=== PATIENT | male | born 1970 | race Caucasian/White ===

== ENCOUNTER 2020-11-11 07:24 | Outpatient (CLI) | payer BC, SELFPAY ==
[2020-11-11 07:37] LABS: Add Urine Microscopic? NO; Appearance Urine Clear (Clear); Bilirubin Urine Negative (Negative); Blood Urine Negative (Negative); Color Urine Yellow (Yellow); Glucose Urine UA Negative (Negative); Ketones Urine Negative (Negative); Leukocyte Esterase Ur Negative (Negative); Nitrate Urine Negative (Negative); Protein Urine Negative (Negative); Specific Grav Ur 1.025 (1.010-1.020); Urobilinogen Urine 0.2 mg/dL (0.2-1.0)
[2020-11-11 08:32] LABS: Alanine Aminotransferase 21 U/L (16-63); Albumin Level 3.7 g/dL (3.4-5.0); Alkaline Phosphatase 66 U/L (46-116); Anion Gap 7 mmol/L (8-16); Aspartate Amino Transferase 12 U/L (15-37); Bilirubin,Total 0.4 mg/dL (0.00-1.00); Blood Urea Nitrogen 18 mg/dL (7-18); Calcium 8.9 mg/dL (8.5-10.1); Carbon Dioxide 31 mmol/L (21-32); Chloride 104 mmol/L (98-108); Estimated Glomerular Filt Rate > 60; Ferritin 379 ng/mL (26-388); Glucose 96 mg/dL (70-99); Osmolality Calculated 295 mOsm/kg (285-295); Potassium 4.1 mmol/L (3.5-5.1); Sodium 142 mmol/L (136-145); Total Protein 6.5 g/dL (6.4-8.2)
== END 2020-11-11 07:25 | disposition home or self-care (01) ==
LOC: CHSLAB 07:28
PROVIDERS: PCP Internal Medicine; Visit Provider Internal Medicine
DX: Z00.00 Encounter for general adult medical examination without abnormal findings (principal); Z20.822 Contact with and (suspected) exposure to COVID-19; Z12.5 Encounter for screening for malignant neoplasm of prostate
CPT/HCPCS: 36415; 80053; 81003; 82728; 84153; 86769; G0103

== ENCOUNTER 2021-01-12 09:13 | Outpatient (CLI) | payer BC, SELFPAY ==
--- NOTE | ~2021-01-12 | XR_ITS ---
EXAMINATION: XR knee LT 3V DATE: 01/12/2021 09:49 INDICATION: Left knee pain TECHNIQUE: Three views of the left knee were obtained. COMPARISON: None. FINDINGS: Alignment is normal. No fracture or osteochondral lesion. There is mild tricompartmental os teoarthritis characterized by tiny marginal osteophytes. No joint effusion/synovitis. Soft tissues a re unremarkable. IMPRESSION: 1. No acute osseous abnormality. Reviewed, dictated and finalized at location A.
--- NOTE | ~2021-01-12 | XR_ITS ---
EXAMINATION: XR lumbar spine 2-3V DATE: 01/12/2021 09:48 INDICATION: Low back pain TECHNIQUE: Anteroposterior and lateral views of the lumbar spine, and cone-down lateral view of the l umbosacral junction were obtained. COMPARISON: None. FINDINGS: There is no fracture, dislocation, or subluxation. The vertebral body heights are normal. T here is moderate loss of intervertebral disc space height at L5-S1. Mild loss of disc space height at L3-4 and L4-5. Small degenerative osteophytes project from the anterior endplates of multiple verteb ral bodies. IMPRESSION: 1. Mild to moderate lumbar spondylosis without acute findings. Reviewed, dictated and finalized at location A.
--- NOTE | ~2021-01-12 | XR_ITS ---
XR knee RT 3V 01/12/2021 09:49 INDICATION: Chronic knee pain PROCEDURE: 3 views right knee COMPARISON: No prior studies for comparison. FINDINGS: Fracture, dislocation or subluxation is not identified. No significant joint effusion. The soft tissues appear within normal limits. No foreign bodies are identified. IMPRESSION: 1: NO ACUTE BONE OR JOINT ABNORMALITY IDENTIFIED. Reviewed, dictated and finalized at location A.
--- NOTE | ~2021-01-12 | XR_ITS ---
EXAMINATION: XR hip BI wo pelvis INDICATION: Bilateral hip pain TECHNIQUE: Two views of each hip are obtained. COMPARISON: None available FINDINGS: Bone alignment is normal. There is no fracture. There is mild osteoarthritis of the hips. P hleboliths are noted in the pelvis. IMPRESSION: 1. Mild osteoarthritis of the hips. Reviewed, dictated and finalized at location A.
== END 2021-01-12 09:14 | disposition home or self-care (01) ==
LOC: CHSIMG 09:15
PROVIDERS: PCP Internal Medicine; Visit Provider Internal Medicine
DX: M54.9 Dorsalgia, unspecified (principal); M25.552 Pain in left hip; M25.551 Pain in right hip; M25.562 Pain in left knee; M25.561 Pain in right knee
CPT/HCPCS: 72100; 73521; 73562

== ENCOUNTER 2022-02-07 16:03 | Outpatient (CLI) | payer BC, SELFPAY ==
--- NOTE | ~2022-02-07 | XR_ITS ---
EXAM: XR sinus min 3V DATE: 02/07/2022 16:25 HISTORY: Chronic cough. with SOB . COMPARISON: None available. FINDINGS: The aerated spaces are clear. Orbits are intact and symmetric. Normal mineralization. No f racture or dislocation. No abnormal intracranial calcification. IMPRESSION: Normal sinus radiograph findings. Reviewed, dictated and finalized at location K.
--- NOTE | ~2022-02-07 | XR_ITS ---
EXAMINATION: XR chest 2V Exam Date/Time: 02/07/2022 16:18 CDT HISTORY: Chronic cough. with SOB Comparison: 02/24/2015. RESULT: Lines, tubes, and devices: None. Lungs and pleura: Clear. Cardiomediastinal silhouette: Stable. Other: No acute osseous or upper abdominal finding. IMPRESSION: No acute cardiopulmonary process. Reviewed, dictated and finalized at location K.
== END 2022-02-07 16:04 | disposition home or self-care (01) ==
LOC: CHSIMG 16:06
PROVIDERS: PCP Internal Medicine; Visit Provider Internal Medicine
DX: R05.3 Chronic cough (principal)
CPT/HCPCS: 70220; 71046

== ENCOUNTER 2022-11-08 07:43 | Outpatient (CLI) | payer BC, SELFPAY ==
--- NOTE | ~2022-11-08 | XR_ITS ---
EXAMINATION: XR barium swallow DATE: 11/08/2022 11:43 CDT INDICATION: Chronic cough. Reflux. Asthma. TECHNIQUE: Thick barium contrast with gas effervescent crystals were administered orally. Fluoroscop ic images of the esophagus were obtained in various projections. The hypopharynx was also examined. T hereafter, overhead images of the thoracic esophagrus were performed. Fluroscopy time fluoroscopy jordy e is 0.8 minutes.Dap 12.8. 30 fluoroscopic images. FINDINGS: Normal esophageal peristalsis. There is mild irregularity to the distal esophageal mucosa, suspicious for esophagitis. There is normal esophageal peristalsis. There is a small hiatal hernia. Gastroesophageal reflux is seen during the course of this study. IMPRESSION: 1. Small sliding hiatal hernia with gastroesophageal reflux.Subtle irregularity distal esophageal mu cosa, suspicious for esophagitis. Reviewed, dictated and finalized at location L. IMPRESSION: 1. Small sliding hiatal hernia with gastroesophageal reflux.Subtle irregularit y distal esophageal mucosa, suspicious for esophagitis.
== END 2022-11-08 07:44 | disposition home or self-care (01) ==
LOC: CHSIMG 07:46
PROVIDERS: PCP Internal Medicine; Visit Provider Internal Medicine
DX: R05.9 Cough, unspecified (principal); K44.9 Diaphragmatic hernia without obstruction or gangrene; K21.9 Gastro-esophageal reflux disease without esophagitis
CPT/HCPCS: 74220

== ENCOUNTER 2022-11-30 10:38 | Outpatient (CLI) | payer BC, SELFPAY | END 2022-11-30 10:39 | disposition home or self-care (01) | LOC: CHSCARD 10:41 | PROVIDERS: PCP Internal Medicine; Visit Provider Internal Medicine | DX: R05.9 Cough, unspecified (principal); J98.8 Other specified respiratory disorders | CPT/HCPCS: 94060; 94726; 94729 ==

== ENCOUNTER 2022-12-27 03:20 | Day surgery (SDC) | payer BC, SELFPAY ==
[2022-12-20 10:21] VITALS: BMI 27.4
[2022-12-27 06:23] VITALS: BP 128/90; PULSE 56; RESP 18; TEMP 36.2; O2SAT 99
[2022-12-27] MEDS: LACTATED RINGERS 1,000 ML 150 ML IV CONT (06:39)
--- NOTE | 2022-12-27 07:12 | P.HP_ITS ---
History of Present Illness History of Present Illness Consent: Risks, benefits, and alternatives have been discussed and questions answered. Patient agrees to proceed with procedure. Chief complaint: acid reflux Narrative: Shi Grajeda is a 52 year old male Presents for EGD. Patient has complaints of heartburn for many many years. Typically gets relief with Beatriz- Landenberg. Patient previously prescribed pantoprazole but he is discontinue this. Patient does notice rather frequent ongoing heartburn. Patient had a chronic cough and there was some concern whether this could be related to his acid reflux a barium swallow was performed revealing a hiatal hernia and a question of mild distal esophagitis. Patient reports that sometimes food will catch in the mid substernal portion of the chest when swallowing. Patient presents today for EGD to evaluate more thoroughly. Family history is noncontributory. Review of Systems Review of Systems: review of systems noncontributory. [facility] Social History Social History Smoking status: Never smoker Substance use type: does not use Living arrangements: with family Spiritual care concerns: No Meds Home Medications and Allergies Home Medications Medication Instructions Recorded Confirmed Type No Home Medications 12/20/22 12/20/22 History Allergies Allergy/AdvReac Type Severity Reaction Status Date / Time No Known Allergies Allergy Verified 12/27/22 06:22 Vital Signs Vital Signs - 24 hr 12/27/22 06:23 Temperature 97.1 F L Pulse Rate 56 L Respiratory Rate 18 Blood Pressure 128/90 Pulse Oximetry 99 Oxygen Delivery Room Air Exam Narrative: Physical exam reveals patient to be alert. Vital signs stable. HEENT exam is unremarkable. Patient is anicteric. Lungs are clear to auscultation and percussion. Heart is without murmur or extra sounds. Abdomen bowel sounds are present soft nontender with no organomegaly. Assessment and Plan Assessment and plan (1) GERD (gastroesophageal reflux disease): Code(s): K21.9 - Gastro-esophageal reflux disease without esophagitis Status: Acute Assessment and Plan: Patient has a longstanding history of heartburn consistent with acid reflux. I am somewhat dissatisfied with his treatment with only Beatriz-Landenberg. He did not tolerate pantoprazole for unclear reasons. Plan to try Prilosec. EGD is requested because apparent esophagitis seen on barium swallow. Patient also has complaints of associated dysphagia that will be evaluated. Anti-reflux measures encouraged including elevating head of bed at night no late snacks and bland foods. (2) Dysphagia: Code(s): R13.10 - Dysphagia, unspecified Status: Acute Assessment and Plan: Dysphagia associated with a history of GE reflux suggest either spasm or possible narrowing esophagus. This will be evaluated by EGD.
--- NOTE | 2022-12-27 07:18 | P.PNAN_ITS ---
Anes - Initial Pre Proc Eval Procedure: Operation Date: 12/27/22 07:30 Proposed Procedures p Esophagogastroduodenoscopy - Alcon Carrillo MD Date/Time: 12/27/22 07:18 Surgeon: Alcon Carrillo MD Pre Op Diagnosis: acid reflux Patient Data Age: 52 Gender: M Height: 1.73 m Weight: 85.6 kg Last Vital Signs Temp 97.1 F L 12/27/22 06:23 Pulse 56 L 12/27/22 06:23 Resp 18 12/27/22 06:23 BP 128/90 12/27/22 06:23 Pulse Ox 99 12/27/22 06:23 O2 Del Method Room Air 12/27/22 06:23 Allergies Allergy/AdvReac Type Severity Reaction Status Date / Time No Known Allergies Allergy Verified 12/27/22 06:22 Home Medications Medication Instructions Recorded Confirmed Type No Home Medications 12/20/22 12/20/22 History Patient hx anesthesia problems: none Family hx anesthesia problems: none Results Review: All pre-operative results and documents have been reviewed as part of the pre- operative evaluation. [facility] Social History Social History Smoking status: Never smoker Substance use type: does not use Living arrangements: with family Spiritual care concerns: No Anes - Eval Final PreProcedure Day of Procedure 12/27/22 07:18 Patient weight: normal Heart: regular rate and rhythm Lungs: clear to auscultation Airway: Mallampati scale class II Neurological: alert and oriented Last oral intake: >/= 8 hours ASA classification: II Emergent: no Anesthetic plan: proceed Anesthesia type and monitoring: general GIVS and standard monitoring Results Review: All pre-operative results and documents have been reviewed as part of the pre- operative evaluation. Informed Consent: The patient's anesthetic plan and its attendant risks and benefits were discussed with the patient/family/POA. Questions were solicited and answers provided to the satisfaction of the patient/family/POA.
[2022-12-27 07:40] VITALS: BP 118/86; PULSE 67; RESP 14; O2SAT 96
[2022-12-27 07:50] VITALS: BP 113/80; PULSE 66; RESP 18; O2SAT 97
[2022-12-27 08:00] VITALS: BP 126/85; PULSE 56; RESP 16; O2SAT 99
== END 2022-12-27 08:10 | disposition home or self-care (01) ==
PROVIDERS: PCP Internal Medicine; Visit Provider Internal Medicine Gastroenterology
PROC: 0DJ08ZZ Inspection of Upper Intestinal Tract, Via Natural or Artificial Opening Endoscopic (ICD-10-PCS; CPT 43235; principal; 2022-12-27 07:30)
DX: K21.00 Gastro-esophageal reflux disease with esophagitis, without bleeding (principal); K22.2 Esophageal obstruction
CPT/HCPCS: 43450; 43235; J2704; J7120

== ENCOUNTER 2023-02-25 01:50 | Day surgery (SDC) | payer BC, SELFPAY ==
[2023-02-11 13:53] VITALS: BMI 28.1
[2023-02-25 06:48] VITALS: BP 116/79; PULSE 57; RESP 16; TEMP 36; O2SAT 99; BMI 28.8
[2023-02-25] MEDS: LACTATED RINGERS 1,000 ML 150 ML IV CONT (06:55)
--- NOTE | 2023-02-25 07:15 | WPDANESEPPF ---
Anes - Initial Pre Proc Eval Procedure: Operation Date: 02/25/23 08:00 Proposed Procedures p Esophagogastroduodenoscopy - Alcon Carrillo MD Date/Time: 02/25/23 07:15 Surgeon: Alcon Carrillo MD Pre Op Diagnosis: Esophageal Stricture Patient Data Age: 52 Gender: M Height: 1.73 m Weight: 86.2 kg Last Vital Signs Temp 36.0 C L 02/25/23 06:48 Pulse 57 L 02/25/23 06:48 Resp 16 02/25/23 06:48 BP 116/79 02/25/23 06:48 Pulse Ox 99 02/25/23 06:48 O2 Del Method Room Air 02/25/23 06:48 Allergies Allergy/AdvReac Type Severity Reaction Status Date / Time No Known Allergies Allergy Verified 02/25/23 06:47 Home Medications Medication Instructions Recorded Confirmed Type omeprazole 40 mg capsule,delayed 40 mg PO .Daily #90 caps 12/27/22 02/25/23 Rx release Patient hx anesthesia problems: none Family hx anesthesia problems: none Results Review: All pre-operative results and documents have been reviewed as part of the pre-operative evaluation. [facility] Past Medical History Medical History (Updated 02/25/23 @ 07:23 by Alcon Carrillo MD) DVT (deep venous thrombosis) GERD (gastroesophageal reflux disease) Social History Social History (Updated 02/25/23 @ 07:23 by Manjeet Chan DO) Smoking status: Never smoker Alcohol intake: current Alcohol use details: 2 drinks/day Substance use: current Substance use type: does not use Living arrangements: with family Spiritual care concerns: No Anes - Eval Final PreProcedure Day of Procedure 02/25/23 07:15 Patient weight: overweight Heart: regular rate and rhythm Lungs: clear to auscultation Airway: Mallampati scale class II Neurological: alert and oriented Last oral intake: >/= 8 hours ASA classification: III Emergent: no Anesthetic plan: proceed Anesthesia type and monitoring: general GIVS and standard monitoring Results Review: All pre-operative results and documents have been reviewed as part of the pre-operative evaluation. Informed Consent: The patient's anesthetic plan and its attendant risks and benefits were discussed with the patient/family/POA. Questions were solicited and answers provided to the satisfaction of the patient/family/POA.
--- NOTE | 2023-02-25 07:21 | PM.HPGS ---
History of Present Illness History of Present Illness Consent: Risks, benefits, and alternatives have been discussed and questions answered. Patient agrees to proceed with procedure. Chief complaint: Esophageal Stricture Narrative: Shi Grajeda is a 52 year old male Presents for follow-up EGD. Patient had rather severe erosive esophagitis with esophageal stricturing in December of 2022. Currently maintained on omeprazole 40mg p.o. daily. He states he currently is swallowing well without difficulty. Denies heartburn. EGD has been requested to document healing of severe esophageal erosions and ulcerations. Further recommendations may be given after endoscopy. Review of Systems Review of Systems: Review of systems noncontributory. [facility] Past Medical History Medical History (Updated 02/25/23 @ 07:23 by Alcon Carrillo MD) DVT (deep venous thrombosis) GERD (gastroesophageal reflux disease) Social History Social History Smoking status: Never smoker Alcohol intake: current Alcohol use details: 2 drinks/day Substance use: current Substance use type: does not use Living arrangements: with family Spiritual care concerns: No Meds Home Medications and Allergies Home Medications Medication Instructions Recorded Confirmed Type omeprazole 40 mg capsule,delayed 40 mg PO .Daily #90 caps 12/27/22 02/25/23 Rx release Allergies Allergy/AdvReac Type Severity Reaction Status Date / Time No Known Allergies Allergy Verified 02/25/23 06:47 Vital Signs Vital Signs - 24 hr 02/25/23 06:48 Temperature 96.8 F L Pulse Rate 57 L Respiratory Rate 16 Blood Pressure 116/79 Pulse Oximetry 99 Oxygen Delivery Room Air Exam Narrative: Physical exam reveals patient to be alert. Vital signs stable. HEENT exam is unremarkable. Patient is anicteric. Lungs are clear to auscultation and percussion. Heart is without murmur or extra sounds. abdomen bowel sounds are present soft nontender with no hepatosplenomegaly. Digital external rectal exam is normal. Assessment and Plan Assessment and plan (1) GERD (gastroesophageal reflux disease): Code(s): K21.9 - Gastro-esophageal reflux disease without esophagitis Status: Acute Assessment and Plan: Patient found to have severe esophageal ulcerations and stricturing in December of 2022. Patient now presents back to follow-up after being treated with omeprazole 40mg p.o. daily. Currently has no ongoing dysphagia. Denies heartburn. Further recommendations may be given after endoscopy. (2) Esophageal stricture: Code(s): K22.2 - Esophageal obstruction Status: Acute
[2023-02-25 08:09] VITALS: BP 108/75; BP 109/60; PULSE 62; PULSE 66; RESP 19; O2SAT 95; O2SAT 98
== END 2023-02-25 08:36 | disposition home or self-care (01) ==
PROVIDERS: PCP Internal Medicine; Visit Provider Internal Medicine Gastroenterology
PROC: 0DJ08ZZ Inspection of Upper Intestinal Tract, Via Natural or Artificial Opening Endoscopic (ICD-10-PCS; CPT 43235; principal; 2023-02-25 08:00)
DX: Q39.4 Esophageal web (principal); K21.9 Gastro-esophageal reflux disease without esophagitis
CPT/HCPCS: 43450; 43235; J2704; J7120

== ENCOUNTER 2023-10-22 04:36 | Emergency (ER) | payer BC, SELFPAY ==
--- NOTE | ~2023-10-22 | CT_ITS ---
CT of the Abdomen and Pelvis: Indication: Abdominal pain, hematuria Technique: 2.5 mm axial scans were obtained through the abdomen and pelvis following intravenous adm inistration of 100 cc of Omnipaque 350. Dose reduction technique was used on this scan by utilizing a utomated exposure control and iterative reconstruction technique. The dose-length product (DLP) was 5 28.99 mGy-cm. Findings: Scans through the lung bases are unremarkable. The liver, spleen, pancreas, gallbladder, adrenals and right kidney are within normal limits. There i s a 1.2 x 0.8 cm ovoid stone at the very proximal left ureter, with mild left hydronephrosis (axial i mage 79). No evidence of aortic aneurysm. No lymphadenopathy. No bowel obstruction or bowel wall thickening. There is no evidence to suggest acute appendicitis. Images through the pelvis were performed. Urinary bladder unremarkable. No pelvic mass seen. No ascit es. Impression: 1.2 x 0.8 cm stone at the very proximal left ureter with mild left hydronephrosis. Reviewed, dictated and finalized at location . Impression: 1.2 x 0.8 cm stone at the very proximal left ureter with mild left hydronephros is.
[2023-10-22 04:36] VITALS: BP 159/107; PULSE 73; RESP 20; TEMP 36.2; O2SAT 98
--- NOTE | 2023-10-22 04:44 | PC.NURSE ---
THIS RN ATTEMPTED IV ACCESS X 2 WITHOUT SUCCESS. KALEN CEDILLO AT BEDSIDE FOR IV START. SPOUSE AT BEDSIDE. PATIENT MOVING ABOUT ON STRETCHER, MOANING IN DISCOMFORT. PATIENT REPORTS HE NOTICED BLOOD IN HIS URINE YESTERDAY, DENIES PMH OF KIDNEY STONES, REPORTS LEFT SIDED FLANK PAIN ONSET LAST WEEK, WHICH HAS NOW MOVED DOWN INTO HIS LEFT LOWER PELVIC AREA.
--- NOTE | 2023-10-22 04:50 | ED.ABDPAIN ---
HPI - Abdominal Pain General Chief Complaint: Abdominal Pain Stated Complaint: abdominal pain Source: patient Mode of arrival: ambulatory Limitations: no limitations History of Present Illness HPI narrative: intermittent left flank pain for the last 7 days, got worse overnight, radiating to left lower quadrant, associated with nausea and restlessness. No history of kidney stone. Patient denies any fever or chills, complaining of pinkish color urination lately Related Data Home Medications Medication Instructions Recorded Confirmed omeprazole 40 mg capsule,delayed 40 mg PO DAILY 10/22/23 10/22/23 release Allergies Allergy/AdvReac Type Severity Reaction Status Date / Time No Known Allergies Allergy Verified 10/22/23 04:38 Review of Systems Review of Systems: All systems reviewed & are unremarkable except as noted in HPI and below PMFSH Past Medical History Medical History DVT (deep venous thrombosis) GERD (gastroesophageal reflux disease) Social History Social History Smoking status: Never smoker Alcohol intake: current Alcohol use details: 2 drinks/day Substance use: current Substance use type: does not use Living arrangements: with family Spiritual care concerns: No Exam Narrative: GENERAL APPEARANCE: WELL-DEVELOPED, WELL-NOURISHED, IN PAIN SKIN: NORMAL COLOR NECK: SUPPLE, NONTENDER CHEST AND RESPIRATORY: AIRWAY PATENT, NO RESPIRATORY DISTRESS, NO ACCESSORY MUSCLE USE HEART: REGULAR RATE/RHYTHM ABDOMEN: LEFT FLANK, LEFT LOWER QUADRANT NO ORGANOMEGALY, QUIET BOWEL SOUNDS VASCULAR: NORMAL PERIPHERAL PULSES, NORMAL CAPILLARY REFILL. MUSCULOSKELETAL: NORMAL RANGE OF MOTION, NONTENDER BACK NEUROLOGIC: ALERT AND ORIENTED ?3, NON DESTRUCTIVE EVALUATION MANAGER IS NORMAL TESTED, NO GROSS MOTOR DEFICIT Course Vital Signs Vital signs: Vital Signs Temperature 36.2 C L 10/22/23 04:36 Pulse Rate 73 10/22/23 04:36 Respiratory Rate 20 10/22/23 04:36 Blood Pressure 159/107 H 10/22/23 04:36 Pulse Oximetry 98 10/22/23 04:36 Oxygen Delivery Room Air 10/22/23 04:36 Temperature 36.2 C L 10/22/23 04:36 Pulse Rate 80 10/22/23 05:17 Respiratory Rate 20 10/22/23 05:17 Blood Pressure 121/99 H 10/22/23 05:17 Pulse Oximetry 100 10/22/23 05:17 Oxygen Delivery Room Air 10/22/23 05:17 MDM - Abdominal Pain MDM Narrative Medical decision making narrative: patient came with left flank pain vital signs on arrival showed blood pressure of 159/107, physical examination showed restless patient, in pain Blood workup showed WBC of 2.5, creatinine of 1.3, urinalysis showed hematuria. CT abdomen and pelvis showed 1.2 x 0.8 cm stone at the very proximal left ureter with mild left hydronephrosis In the ED patient received 1 L of normal saline, 0.5 mg of Dilaudid IV, 30 mg of Toradol IV, 4 mg of Zofran IV with significant improvement. Although The stone is large, and probably patient will need lithotripsy in the near future,patient feeling much better and would like to go home to follow-up with urologist as outpatient. Discharged on Flomax, Butternut, Zofran and Motrin Differential Diagnosis Differential diagnosis: Likely other ( kidney stone, urinary tract infection, constipation, splenic infarction) Lab Data 10/22/23 05:21 10/22/23 05:21 Labs: Lab Results 10/22/23 10/22/23 Range/Units 05:21 06:13 WBC 12.0 H (4.8-10.8) K/mm3 RBC 4.88 (4.70-6.10) M/mm3 Hgb 15.4 (14.0-18.0) g/dL Hct 45.7 (40.0-54.0) % MCV 93.6 (78.0-102.0) fL MCH 31.6 H (27.0-31.0)
[2023-10-22] MEDS: ONDANSETRON INJ 4 MG/2 ML VIAL IV PUSH (04:53)
[2023-10-22] MEDS: SODIUM CHLORIDE 0.9% IV 1,000 ML 999 ML IV CONT (04:53)
[2023-10-22] MEDS: HYDROmorphone HCL INJ (*CRX) 2 MG/ML VIAL 0.5 MG IV PUSH ×2 (04:54→05:29)
[2023-10-22] MEDS: TAMSULOSIN HCL 0.4 MG CAPSULE PO (04:59)
[2023-10-22 05:14] LABS: Basophils Absolute Auto 0.05 K/mm3 (0.00-0.10); Basophils Percent Auto 0.4 % (0.0-1.0); Eosinophils Absolute Auto 0.28 K/mm3 (0.02-0.50); Eosinophils Percent Auto 2.3 % (1.0-6.0); Hematocrit 45.7 % (40.0-54.0); Hemoglobin 15.4 g/dL (14.0-18.0); Immature Granulocyte Absolute 0.12 K/mm3 (0.00-0.00); Immature Platelet Fraction Pct 2.4 % (1.0-7.0); Lymphocytes Absolute Auto 3.58 K/mm3 (1.10-4.50); Lymphocytes Percent Auto 29.9 % (18.0-42.0); Mean Corpuscular HGB Conc 33.7 g/dL (32-36); Mean Corpuscular Hemoglobin 31.6 pg (27.0-31.0); Mean Corpuscular Volume 93.6 fL (78.0-102.0); Monocytes Absolute Auto 1.12 K/mm3 (0.10-0.90); Monocytes Percent Auto 9.3 % (2.0-11.0); Neutrophils Absolute Auto 6.83 K/mm3 (1.70-7.20); Neutrophils Percent Auto 57.1 % (50.0-70.0); Platelet Count Result 237 K/mm3 (150-420); Red Blood Count 4.88 M/mm3 (4.70-6.10); Red Cell Distribution Width 12.6 % (11.6-14.4)
[2023-10-22 05:17] VITALS: BP 121/99; PULSE 80; RESP 20; O2SAT 100
[2023-10-22 05:18] LABS: Alanine Aminotransferase 37 U/L (16-63); Albumin Level 3.3 g/dL (3.4-5.0); Alkaline Phosphatase 63 U/L (46-116); Anion Gap 11 mmol/L (4-12); Aspartate Amino Transferase 37 U/L (15-37); Bilirubin,Total 0.5 mg/dL (0.00-1.00); Blood Urea Nitrogen 18 mg/dL (7-18); Calcium 8.4 mg/dL (8.5-10.1); Carbon Dioxide 28 mmol/L (21-32); Chloride 101 mmol/L (98-108); Estimated Glomerular Filt Rate 55; Glucose 92 mg/dL (70-99); Lipase 34 U/L (16-77); Osmolality Calculated 291 mOsm/kg (285-295); Potassium 4.4 mmol/L (3.5-5.1); Sodium 140 mmol/L (136-145); Total Protein 7.1 g/dL (6.4-8.2)
[2023-10-22] MEDS: KETOROLAC 30 MG/ML VIAL (*BKC) IV PUSH (05:28)
--- NOTE | 2023-10-22 05:43 | PC.NURSE ---
PATIENT RETURNED FROM IMAGING, AWAITING RESULTS AND PLAN. SPOUSE AT BEDSIDE. RN MONITORING. PATIENT SPOUSE TELLS ED STAFF PATIENT REPORTED FEELING IMMEDIATE RELIEF AFTER LAST DOSE OF IV MEDICATION, SEE MAR. CALL LIGHT WITHIN REACH.
[2023-10-22 06:16] LABS: Appearance Urine Sl Cloudy (Clear); Bilirubin Urine Negative (Negative); Blood Urine 3+ (Negative); Color Urine Yellow (Yellow); Glucose Urine UA Negative (Negative); Ketones Urine Negative (Negative); Leukocyte Esterase Ur Negative LEU/UL (Negative); Nitrate Urine Negative (Negative); Protein Urine 1+ (Negative); Urobilinogen Urine 0.2 mg/dL (0.2-1.0)
[2023-10-22 06:22] LABS: Add Urine Microscopic? YES; Bacteria Urine Rare /hpf; RBC Urine 51-75 /hpf (0-2); WBC Urine None seen /hpf (0-3)
--- NOTE | 2023-10-22 06:25 | PC.NURSE ---
DR LENNON AT BEDSIDE FOR PATIENT UPDATE.
[2023-10-22 06:59] VITALS: BP 129/94; PULSE 78; RESP 16; TEMP 36.5; O2SAT 94
== END 2023-10-22 07:00 | disposition home or self-care (01) ==
PROVIDERS: Emergency Provider Emergency Medicine; PCP Internal Medicine
DX: N20.0 Calculus of kidney (principal); Z86.718 Personal history of other venous thrombosis and embolism; K21.9 Gastro-esophageal reflux disease without esophagitis
CPT/HCPCS: 36415; 74177; 80053; 81001; 83690; 85025; 85055; 96361; 96374; 96375; 96376; 99284; A9270; J1170; J1885; J2405; J7030; Q9967

== ENCOUNTER 2023-10-23 11:47 | Observation (INO) | payer BC, SELFPAY ==
--- NOTE | ~2023-10-23 | XR_ITS ---
EXAMINATION: XR abdomen/kub 1V DATE: 10/23/2023 15:55 INDICATION: Kidney stone. TECHNIQUE: A supine view of the abdomen on 2 radiographs was obtained. COMPARISON: CT abdomen and pelvis 10/22/2023 FINDINGS: There are no dilated loops of bowel. There are phleboliths and prostate calcifications in t he pelvis. Stool obscures the kidneys. IMPRESSION: 1. No visible urolithiasis. Reviewed, dictated and finalized at location A. IMPRESSION: 1. No visible urolithiasis.
[2023-10-23 11:49] VITALS: BP 119/100; PULSE 98; RESP 16; TEMP 36.6; O2SAT 98
[2023-10-23] MEDS: SODIUM CHLORIDE 0.9% IV 1,000 ML 999 ML IV CONT (13:34)
[2023-10-23] MEDS: HYDROmorphone HCL INJ (*CRX) 1 MG/ML SYR IV PUSH ×3 (13:34→20:49)
--- NOTE | 2023-10-23 13:34 | ED.BACK ---
HPI - Back Pain/Injury General Chief Complaint: Back Pain/Injury Stated Complaint: kidney stones Time Seen by Provider: 10/23/23 13:08 History of Present Illness HPI Narrative: 53-year-old male who presents emergency room for evaluation with the pain. Patient was seen yesterday for same complaint, CT scan shows a 1.2 cm stone to the proximal left ureter with mild hydronephrosis. Patient was given fluids and pain medication during his ER stay. Patient stated that he achieved pain relief and wished to go home follow-up with urology as an outpatient. States today or the pain became unbearable. States the pain comes in waves lasts for 2-3 hours. Hydrocodone is not alleviating his pain. Related Data Home Medications Medication Instructions Recorded Confirmed omeprazole 40 mg capsule,delayed 40 mg PO DAILY 10/22/23 10/22/23 release Allergies Allergy/AdvReac Type Severity Reaction Status Date / Time No Known Allergies Allergy Verified 10/22/23 04:38 Review of Systems Review of Systems: My ROS unremarkable except for stated in HPI PMFSH Past Medical History Medical History DVT (deep venous thrombosis) GERD (gastroesophageal reflux disease) Social History Social History Smoking status: Never smoker Alcohol intake: current Alcohol use details: 2 drinks/day Substance use: current Substance use type: does not use Living arrangements: with family Spiritual care concerns: No Exam Narrative: GENERAL: Well-appearing, well-nourished, no physical limitations, and in no acute distress. HEAD: Normocephalic, atraumatic. EYES: Conjunctivae normal, PERRLA and EOMI.D CHEST: Clear to auscultation. No respiratory distress. No wheezes rales or rhonchi. HEART: Regular rate and rhythm. No murmur heard. Normal peripheral pulses. ABDOMEN: Soft, nontender, nondistended, normal active bowel sounds. BACK: No CVA tenderness; EXTREMITIES: Normal range of motion. No edema. No clubbing or cyanosis SKIN: Warm, dry, no rash. No noted wounds NEURO: No focal deficits. Alert and oriented x3. MAEW. CN's II-XI intact bilaterally, normal gait PSYCH: Cooperative. Normal mood and affect. Course Course Emergency Course: Consulted with Dr. Green. He is going to come down and evaluate the patient here in the emergency room. Due to patient's discomfort level, topical number he will be taking the patient to the OR for further management. Vital Signs Vital signs: Vital Signs Temperature 36.6 C 10/23/23 11:49 Pulse Rate 98 10/23/23 11:49 Respiratory Rate 16 10/23/23 11:49 Blood Pressure 119/100 H 10/23/23 11:49 Pulse Oximetry 98 10/23/23 11:49 Oxygen Delivery Room Air 10/23/23 11:49 Temperature 36.6 C 10/23/23 11:49 Pulse Rate 98 10/23/23 11:49 Respiratory Rate 16 10/23/23 11:49 Blood Pressure 119/100 H 10/23/23 11:49 Pulse Oximetry 98 10/23/23 11:49 Oxygen Delivery Room Air 10/23/23 11:49 MDM - Back Pain/Injury Lab Data 10/23/23 14:37 10/23/23 14:37 Labs: Lab Results 10/23/23 Range/Units 14:37 WBC 14.9 H (4.5-10.0) K/mm3 RBC 4.09 L (4.6-6.20) M/mm3 Hgb 13.3 L (14.0-18.0) g/dL Hct 38.8 L (42.0-52.0) % MCV 94.9 (80-100) fl MCH 32.5 (26-34) pg MCHC 34.3 (32-36) g/dl RDW 12.6 (11.5-14.5) % Plt Count 236 (150-375) k/mm3 MPV 9.4 (7.4-10.4) fl Immature Gran % (Auto) 0.7 H (0-0.5) % Neut % (Auto) 83.0 H (45.5-73.1) % Lymph % (Auto) 7.4 L (18.3-44.2) % [place] % (Auto) 8.6 H (2.6-8.5) % Eos % (Auto) 0.1 (0-4.4) % Baso % (Auto) 0.2 (0.2-1.2) % Lymph # (Auto) 1.11 (0.9-3.2) K/mm3 [place] # (Auto) 1.3 H (0.1-0.6) K/mm3 Eos # (Auto) 0.0 (0-0.3) K/mm3 Baso # (Auto) 0.0 (0.0-0.1) K/mm3 Abs Immat Gran (auto) 0.10 H (0.00-0.031) K/mm3 Absolute Neuts (auto) 12.4 H (1.
[2023-10-23] MEDS: ONDANSETRON INJ 4 MG/2 ML VIAL IV PUSH (13:35)
[2023-10-23 14:43] LABS: Basophils Percent Auto 0.2 % (0.2-1.2); Eosinophils Percent Auto 0.1 % (0-4.4); Hematocrit 38.8 % (42.0-52.0); Hemoglobin 13.3 g/dL (14.0-18.0); Immature Granulocyte Percent A 0.7 % (0-0.5); Lymphocytes Absolute Auto 1.11 K/mm3 (0.9-3.2); Lymphocytes Percent Auto 7.4 % (18.3-44.2); Mean Corpuscular HGB Conc 34.3 g/dl (32-36); Mean Corpuscular Hemoglobin 32.5 pg (26-34); Mean Corpuscular Volume 94.9 fl (80-100); Mean Platelet Volume 9.4 fl (7.4-10.4); Monocytes Absolute Auto 1.3 K/mm3 (0.1-0.6); Monocytes Percent Auto 8.6 % (2.6-8.5); Neutrophils Absolute Auto 12.4 K/mm3 (1.3-6.7); Platelet Count Result 236 k/mm3 (150-375); Red Blood Count 4.09 M/mm3 (4.6-6.20); Red Cell Distribution Width 12.6 % (11.5-14.5); White Blood Count 14.9 K/mm3 (4.5-10.0)
[2023-10-23 14:54] LABS: Alanine Aminotransferase 21 U/L (6-50); Albumin Level 3.9 g/dL (3.5-5.1); Alkaline Phosphatase 66 U/L (38-126); Anion Gap 7 mmol/L (4-12); Aspartate Amino Transferase 33 U/L (17-59); Bilirubin,Total 0.9 mg/dL (0.2-1.3); Blood Urea Nitrogen 13 mg/dL (9-20); Calcium 8.7 mg/dL (8.4-10.2); Carbon Dioxide 23 mmol/L (22-30); Chloride 108 mmol/L (98-107); Estimated CRCL calculation 88 ml/min; Estimated Glomerular Filt Rate > 60; Glucose 110 mg/dL (65-110); Potassium 3.8 mmol/L (3.4-5.0); Sodium 138 mmol/L (137-145)
[2023-10-23 15:06] LABS: Appearance Urine Clear (Clear); Bacteria Urine None Seen /hpf; Bilirubin Urine Negative (Negative); Blood Urine 2+ (Negative); Color Urine Yellow (Yellow); Glucose Urine UA Negative (Negative); Ketones Urine Negative (Negative); Leukocyte Esterase Ur 1+ LEU/UL (Negative); Need Manual Microscopic Reviewed; Nitrate Urine Negative (Negative); Non Pathogenic Casts 0-2; Protein Urine Negative (Negative); RBC Urine 0-2 /hpf (0-2); Specific Grav Ur 1.005 (1.001-1.035); Squamous Epithelial Cell Urine None Seen /hpf (Few); Urobilinogen Urine 0.2 mg/dL (<2.0); WBC Urine 0-5 /hpf (0-3); pH Urine 5.5 (5.0-9.0)
[2023-10-23 15:10] LABS: Add Urine Microscopic? YES
--- NOTE | 2023-10-23 15:58 | WPDURCON ---
Assessment and Plan Assessment and plan (1) Left ureteral stone: Code(s): N20.1 - Calculus of ureter <Milagros Amezquita MD - Last Filed: 10/23/23 16:56> Status: Acute <Milagros Amezquita MD - Last Filed: 10/23/23 16:56> Assessment and Plan: 1.2 x 0.8 cm stone at the proximal left ureter with mild left hydronephrosis. Stone is not visible on KUB. -- Plan admission to the hospital for pain control. -- Will proceed with cystoscopy, Left retrograde pyelogram, left ESWL and left ureteral stent placement tomorrow. Risks of the procedure including but limited to infection, bleeding, pain, injury to surrounding structures, inability to place stent, need for additional procedures, complications from anesthesia were all discussed. Patient understands and agrees to proceed. <Milagros Amezquita MD - Last Filed: 10/23/23 16:56> 1.2 x 0.8 cm stone at the proximal left ureter with mild left hydronephrosis. Stone is not visible on KUB. Will proceed with cystoscopy and left ureteral stent placement this evening given his persistent severe pain. Will need definitive stone treatment a later date. <Katie Villarreal PA-C - Last Filed: 10/23/23 16:29> Urology Consult Note HPI Date Seen: 10/23/23 <Milagros Amezquita MD - Last Filed: 10/23/23 16:56> 10/23/23 <Katie Villarreal PA-C - Last Filed: 10/23/23 16:29> Primary Care Provider: David Pro MD <Milagros Amezquita MD - Last Filed: 10/23/23 16:56> Consult Narrative Narrative: Shi Grajeda is a 53 year old male <Milagros Amezquita MD - Last Filed: 10/23/23 16:56> Shi Grajeda is a 53 year old male with history of gout who is being seen in consultation for evaluation of large proximal left ureteral stone. He has no history of kidney stones or other urologic issues. Reports about 3 days ago he developed left-sided pain, vomiting, and chills. He presented to the ER on 10/22/[address] scan of his abdomen/pelvis with contrast demonstrated a 1.2 x 0.8 cm stone at the proximal left ureter with mild left hydronephrosis. His pain improved and he was discharged with a course of tamsulosin, analgesics, antiemetics. He was instructed to strain his urine and a follow-up with urology as an outpatient. Unfortunately this afternoon his symptoms became more severe and he presented again to the ER with left flank pain. He reports colicky pain that comes and goes in waves. At the time of my evaluation, he is visibly uncomfortable, pacing around the room. His white blood cell count is 14.9. Creatinine is 1.0. UA with 2+ blood and 1+ leukocytes. He is afebrile and his vital signs are stable. KUB was completed this afternoon and stone is not visible. Suspect that he has a uric acid stone given his history of gout. Given his persistent significant pain, he has elected to proceed with cystoscopy and left ureteral stent placement later today. Discussed need for definitive stone treatment at a later date. He is agreeable to this plan. <Katie Villarreal PA-C - Last Filed: 10/23/23 16:29> Review of Systems Review of Systems: All systems reviewed & are unremarkable except as noted in HPI and below <Katie Villarreal PA-C - Last Filed: 10/23/23 16:29> [facility] Past Medical History Medical History: Medical History DVT (deep venous thrombosis) GERD (gastroesophageal reflux disease) <Milagros Amezquita MD - Last Filed: 10/23/23 16:56> Social History Social History: Social History Smoking status: Never smoker Alcohol intake: current Alcohol use details: 2 drinks/day Substance use: current Substance use type: does not use Living arrangements: with family Spiritual care concerns: No <Milagros Amezquita MD - Last Filed: 10/23/23 16:56> Meds Home Medications and Allergies Home medi
--- NOTE | 2023-10-23 18:26 | PM.IMHP ---
H&P: HPI History of Present Illness Date/Time: 10/23/23 18:26 Chief Complaint: Flank Pain Narrative: 53 y/o M presents here with left flank pain with PMH of DVT (RLE, 2019), gout, and GERD. Patient returns to the emergency department for re-evaluation of left flank pain. Patient presented yesterday, 10/21, with left lower quadrant pain and left flank pain that has been ongoing for 7 days. 1.2 cm stone to the proximal left ureter with mild hydronephrosis. Patient was discharged after his pain was controlled, prescribed hydrocodone, and to follow up with Urology outpatient. However return today due to severity of pain. Patient describes the pain as sharp, cramping, achy, nonradiating, intermittent and no aggravating or alleviating factors. Patient tried hydrocodone script while at home without relief. No prior history of kidney stones. No fever, chills, or body aches. E ndorses breif hematuria at the onset of symptoms, has not reoccured. No dysuira or urinary frequnecy. Initial VS at presentation: 97.9? F, HR 98, RR 16, 119/100, and 98% on RA. ED workup showed: WBC 14.9, very mild anemia, creatinine 1.0 and GFR >60, and UA showed 2+ blood and 1+ leuks. CT of the abdomen pelvis (10/22/23) showed a 1.2 x 0.8 cm stone at the very proximal left ureter. Review of Systems Review of Systems: All systems reviewed & are unremarkable except as noted in HPI and below PMFSH Past Medical History Medical History DVT (deep venous thrombosis) (2019) Esophageal stricture GERD (gastroesophageal reflux disease) Gout History of esophageal dilatation Surgical History Surgical History (Updated 10/23/23 @ 21:50 by Gail Dorman APRN) History of foot surgery Fracture, 2019 Social History Social History Smoking packs per day: 0.25 Smoking cigarettes per day: 5.0 Years smoked: 4 Smoking pack-years: 1.00 Smoking status: Former smoker Alcohol intake: current Drinks per week: 12 Alcohol use details: 2 drinks/day Substance use: never Substance use type: does not use Do You Feel Safe in your Home?: Yes Lack of Transportation: No Lack of Food: Never True Current Housing: I Have Housing Concerned About Future Housing: No Difficulty Paying Gas/Electric Bills: No Difficulty Paying for Meds: No Currently Unemployed: No Education: High School Diploma/GED Difficulty w/ Childcare or Family Care: No Living arrangements: with family Spiritual care concerns: No Meds Home Medications and Allergies Home Medications Medication Instructions Recorded Confirmed Type hydrocodone 5 mg-acetaminophen 325 1 tablet PO Q4H #20 tabs 10/22/23 10/23/23 Rx mg tablet omeprazole 40 mg capsule,delayed 40 mg PO DAILY 10/22/23 10/23/23 History release ondansetron HCl 4 mg tablet 4 mg PO Q4H 3 doses #10 tabs 10/22/23 10/23/23 Rx tamsulosin 0.4 mg capsule (Flomax) 0.4 mg PO DAILY #10 caps 10/22/23 10/23/23 Rx Allergies Allergy/AdvReac Type Severity Reaction Status Date / Time No Known Allergies Allergy Verified 10/22/23 04:38 Vital Signs Vital Signs - 24 hr 10/23/23 11:49 Temperature 97.9 F Pulse Rate 98 Respiratory Rate 16 Blood Pressure 119/100 H Pulse Oximetry 98 Oxygen Delivery Room Air Exam Const: General: comfortable and no acute distress Other: , male, nontoxic appearance HENMT: Face/Nose/Sinus: Normal nares present Mouth: Yes moist mucous membranes Eyes: General: appearance normal, both eyes and all related structures Sclera: sclerae normal Pupils: Equal, round and reactive pupils present EOM: EOMs intact bilaterally Resp: Effort & Inspection: normal respiratory effort Auscultation: clear to auscultation bilaterally Cardio: Rate: regular rate Rhythm: regular rhythm Other: S1-S2 present without murmur, rub, ectopy GI: Other: a
[2023-10-23 18:28] VITALS: BP 137/71; PULSE 71; RESP 16; TEMP 36.9; O2SAT 98
[2023-10-23 18:30] VITALS: BP 144/80; PULSE 77; RESP 18; TEMP 36.7; O2SAT 98
--- NOTE | 2023-10-23 18:44 | ADMGEN ---
This patient, Shi Grajeda, was admitted to [facility] Surg Room 325-01. Patient/family oriented to hospital policies and general routines including ID bracelet, bed and alarms, visiting hours, pain management, procedures, bathroom and other care routines, personal items, smoking policy, room service/diet, and visiting hours. Information on how to activate the Rapid Response Team has been discussed. Patient/Family are encouraged to report perceived risks to care and to ask questions if they do not understand what they are told or what they should do.
[2023-10-23] MEDS: LACTATED RINGERS 1,000 ML 75 ML IV CONT (19:54)
[2023-10-23 20:00] VITALS: BP 138/68; PULSE 100; RESP 16; TEMP 36.9; O2SAT 98
[2023-10-24] VITALS (12 sets, daily range): BP systolic 117–142; BP diastolic 65–90; PULSE 64–98; RESP 13–19; TEMP 36.2–36.9; O2SAT 93–99
[2023-10-24] MEDS: HYDROmorphone HCL INJ (*CRX) 1 MG/ML SYR IV PUSH (01:50)
--- NOTE | 2023-10-24 06:19 | P.HP_ITS ---
History of Present Illness History of Present Illness Consent: Risks, benefits, and alternatives have been discussed and questions answered. Patient agrees to proceed with procedure. Chief complaint: Nephrolithiasis Narrative: Shi Grajeda is a 53 year old male [facility] Past Medical History Medical History DVT (deep venous thrombosis) (2019) Esophageal stricture GERD (gastroesophageal reflux disease) Gout History of esophageal dilatation Surgical History Surgical History (Updated 10/23/23 @ 21:50 by Gail Dorman APRN) History of foot surgery Fracture, 2019 Social History Social History Smoking packs per day: 0.25 Smoking cigarettes per day: 5.0 Years smoked: 4 Smoking pack-years: 1.00 Smoking status: Former smoker Alcohol intake: current Drinks per week: 12 Alcohol use details: 2 drinks/day Substance use: never Substance use type: does not use Do You Feel Safe in your Home?: Yes Lack of Transportation: No Lack of Food: Never True Current Housing: I Have Housing Concerned About Future Housing: No Difficulty Paying Gas/Electric Bills: No Difficulty Paying for Meds: No Currently Unemployed: No Education: High School Diploma/GED Difficulty w/ Childcare or Family Care: No Living arrangements: with family Spiritual care concerns: No Meds Home Medications and Allergies Home Medications Medication Instructions Recorded Confirmed Type hydrocodone 5 mg-acetaminophen 325 1 tablet PO Q4H #20 tabs 10/22/23 10/23/23 Rx mg tablet omeprazole 40 mg capsule,delayed 40 mg PO DAILY 10/22/23 10/23/23 History release ondansetron HCl 4 mg tablet 4 mg PO Q4H 3 doses #10 tabs 10/22/23 10/23/23 Rx tamsulosin 0.4 mg capsule (Flomax) 0.4 mg PO DAILY #10 caps 10/22/23 10/23/23 Rx Allergies Allergy/AdvReac Type Severity Reaction Status Date / Time No Known Allergies Allergy Verified 10/22/23 04:38 Vital Signs Vital Signs - 24 hr 10/23/23 11:49 10/23/23 18:28 10/23/23 18:30 Temperature 97.9 F 98.5 F 98.0 F Pulse Rate 98 71 77 Respiratory Rate 16 16 18 Blood Pressure 119/100 H 137/71 144/80 H Pulse Oximetry 98 98 98 Oxygen Delivery Room Air 10/23/23 20:00 10/23/23 20:00 10/24/23 00:00 Temperature 98.4 F 97.8 F Pulse Rate 100 73 Respiratory Rate 16 14 Blood Pressure 138/68 138/83 Pulse Oximetry 98 95 Oxygen Delivery Room Air 10/24/23 04:00 Temperature 97.8 F Pulse Rate 73 Respiratory Rate 14 Blood Pressure 138/83 Pulse Oximetry 95 Oxygen Delivery
--- NOTE | 2023-10-24 06:47 | WPDHPUPDATE1 ---
History and Physical Update Update Date/Time: 10/24/23 06:47 History and Physical has been reviewed, including an updated exam of the patient. There are NO changes in the patient's condition. Risks, benefits, and alternatives have been discussed and questions answered. Patient agrees to proceed with procedure.
[2023-10-24 06:48] LABS: Basophils Percent Auto 0.1 % (0.2-1.2); Eosinophils Absolute Auto 0.1 K/mm3 (0-0.3); Eosinophils Percent Auto 1.3 % (0-4.4); Hematocrit 37.1 % (42.0-52.0); Hemoglobin 12.5 g/dL (14.0-18.0); Immature Granulocyte Absolute 0.06 K/mm3 (0.00-0.031); Immature Granulocyte Percent A 0.6 % (0-0.5); Lymphocytes Absolute Auto 1.96 K/mm3 (0.9-3.2); Lymphocytes Percent Auto 18.4 % (18.3-44.2); Mean Corpuscular HGB Conc 33.7 g/dl (32-36); Mean Corpuscular Hemoglobin 32.2 pg (26-34); Mean Corpuscular Volume 95.6 fl (80-100); Mean Platelet Volume 9.6 fl (7.4-10.4); Monocytes Absolute Auto 1.4 K/mm3 (0.1-0.6); Monocytes Percent Auto 13.1 % (2.6-8.5); Neutrophils Absolute Auto 7.1 K/mm3 (1.3-6.7); Neutrophils Percent Auto 66.5 % (45.5-73.1); Platelet Count Result 210 k/mm3 (150-375); Red Blood Count 3.88 M/mm3 (4.6-6.20); Red Cell Distribution Width 12.9 % (11.5-14.5); White Blood Count 10.7 K/mm3 (4.5-10.0)
[2023-10-24 07:05] LABS: Alanine Aminotransferase 17 U/L (6-50); Albumin Level 3.4 g/dL (3.5-5.1); Alkaline Phosphatase 56 U/L (38-126); Anion Gap 3 mmol/L (4-12); Aspartate Amino Transferase 18 U/L (17-59); Bilirubin,Total 0.8 mg/dL (0.2-1.3); Blood Urea Nitrogen 11 mg/dL (9-20); Calcium 8.3 mg/dL (8.4-10.2); Carbon Dioxide 26 mmol/L (22-30); Chloride 106 mmol/L (98-107); Estimated CRCL calculation 88 ml/min; Estimated Glomerular Filt Rate > 60; Glucose 102 mg/dL (65-110); Potassium 3.6 mmol/L (3.4-5.0); Sodium 135 mmol/L (137-145)
--- NOTE | 2023-10-24 09:47 | PM.IMPN ---
Progress Note: A&P Assessment and Plan (1) Left ureteral stone: Code(s): N20.1 - Calculus of ureter Status: Acute Assessment and Plan: - CT abd/pelvis (10/21): 1.2 x 0.8 cm stone at the very proximal left ureter with mild left hydronephrosis. - UA: 2+ blood, 1+ leuks, no epithelial cells, no bacteria - given up trending leukocytosis will obtain UC, hold on abx - previous micro reviewed: none - urology consulted, Alirio LIZAMA. provided the following recs: Admission for pain control Proceed with cystoscopy and left retrograde pyelogram, left ESWL and left ureteral stent placement on 10/23 around 3 pm Stone is not visible on KUB, will need definitive stone treatment at a later date - NPO at midnight 10/23 - trend labs - pain control - IV fluids: LR at 75 mL/hr x 1L - continue Flomax Plan Patient here with left flank pain, found to have a 1.2 x 0.8 cm stone of the proximal left ureter on CT yesterday, 10/21. Plan for cystoscopy tomorrow with Urology. UA does not appear infected, however has up trending leukocytosis, urine culture ordered. Continue pain control. Diet: NPO at midnight () GI Prophylaxis: Continue home omeprazole DVT Prophylaxis: SCDs Lines: Peripheral Code Status: full code Time Spent With Patient Time with patient: 15 - 25 minutes Subjective Date/time seen: 10/24/23 09:47 Interval history: 53 y/o M presents here with left flank pain with PMH of DVT (RLE, 2019), gout, and GERD. Patient returns to the emergency department for re-evaluation of left flank pain.? Patient presented yesterday, 10/21, with left lower quadrant pain and left flank pain that has been ongoing for 7 days. 1.2 cm stone to the proximal left ureter with mild hydronephrosis.? Patient was discharged after his pain was controlled, prescribed hydrocodone, and to follow up with Urology outpatient.? However return today due to severity of pain.? Patient describes the pain as sharp, cramping, achy, nonradiating, intermittent and no aggravating or alleviating factors.? Patient tried hydrocodone script while at home without relief. No prior history of kidney stones. No fever, chills, or body aches. E ndsahsa breif hematuria at the onset of symptoms, has not reoccurred. No dysuira or urinary frequnecy. Initial VS at presentation:? 97.9? F, HR 98, RR 16, 119/100, and 98% on RA. ED workup showed:? WBC 14.9, very mild anemia, creatinine 1.0 and GFR >60, and UA showed 2+ blood and 1+ leuks.? CT of the abdomen pelvis (10/22/23) showed a 1.2 x 0.8 cm stone at the very proximal left ureter. 10/23- cystoscopy is planned for today around 3 pm Review of Systems Review of Systems: All systems reviewed & are unremarkable except as noted in HPI and below Cardiovascular: Cardiovascular: Denies chest pain, Denies diaphoresis and Denies leg edema Gastrointestinal: Gastrointestinal: Denies abdominal pain Genitourinary: Genitourinary: Denies hematuria Neurologic: Reports system reviewed and no additional complaints, except as documented, Denies Abnormal speech present and Denies abnormal gait Psychiatric: Psychiatric: Denies anxiety and Denies behavioral changes Exam Narrative: mild left flank tenderness. bs fine. abdomen rounded, slightly tight but soft, and no tenderness. Const: General: comfortable and no acute distress Other: , male, nontoxic appearance HENMT: Face/Nose/Sinus: Normal nares present Mouth: Yes moist mucous membranes Eyes: General: appearance normal, both eyes and all related structures Sclera: sclerae normal Pupils: Equal, round and reactive pupils present EOM: EOMs intact bilaterally Resp: Effort & Inspection: normal respiratory effort Auscultation: clear to auscultation bilaterally Cardio: Rate: regular rate Rhythm: regular rhythm Other: S1-S2 present without murmur, rub, ectopy GI: Other: abdomen rounded, slightly tight but soft, and no tenderness. Normoactive bowel sounds i
[2023-10-24] MEDS: LACTATED RINGERS 1,000 ML 30 ML IV CONT ×3 (13:20→15:45)
--- NOTE | 2023-10-24 13:43 | WPDANESEPPF ---
Anes - Initial Pre Proc Eval Procedure: Operation Date: 10/24/23 16:30 Proposed Procedures p Left Extracorporeal Shock Wave Lithotripsy, Left Retrograde Pyelogram, Left Ureteral Stent Placement - Moy Chavira MD Date/Time: 10/24/23 13:43 Surgeon: Asif Carroll MD Pre Op Diagnosis: Nephrolithiasis Patient Data Age: 53 Gender: M Height: 1.75 m Weight: 100 kg Last Vital Signs Temp 36.2 C L 10/24/23 12:00 Pulse 83 10/24/23 12:00 Resp 16 10/24/23 12:00 BP 142/78 H 10/24/23 12:00 Pulse Ox 97 10/24/23 12:00 O2 Del Method Room Air 10/24/23 08:00 Allergies Allergy/AdvReac Type Severity Reaction Status Date / Time No Known Allergies Allergy Verified 10/22/23 04:38 Home Medications Medication Instructions Recorded Confirmed Type hydrocodone 5 mg-acetaminophen 325 1 tablet PO Q4H #20 tabs 10/22/23 10/23/23 Rx mg tablet omeprazole 40 mg capsule,delayed 40 mg PO DAILY 10/22/23 10/23/23 History release ondansetron HCl 4 mg tablet 4 mg PO Q4H 3 doses #10 tabs 10/22/23 10/23/23 Rx tamsulosin 0.4 mg capsule (Flomax) 0.4 mg PO DAILY #10 caps 10/22/23 10/23/23 Rx Laboratory Tests 10/23/23 10/24/23 14:37 06:25 WBC 14.9 H K/mm3 10.7 H K/mm3 (4.5-10.0) (4.5-10.0) RBC 4.09 L M/mm3 3.88 L M/mm3 (4.6-6.20) (4.6-6.20) Hgb 13.3 L g/dL 12.5 L g/dL (14.0-18.0) (14.0-18.0) Hct 38.8 L % 37.1 L % (42.0-52.0) (42.0-52.0) MCV 94.9 fl 95.6 fl (80-100) (80-100) MCH 32.5 pg 32.2 pg (26-34) (26-34) MCHC 34.3 g/dl 33.7 g/dl (32-36) (32-36) RDW 12.6 % 12.9 % (11.5-14.5) (11.5-14.5) Plt Count 236 k/mm3 210 k/mm3 (150-375) (150-375) MPV 9.4 fl 9.6 fl (7.4-10.4) (7.4-10.4) Immature Gran % (Auto) 0.7 H % 0.6 H % (0-0.5) (0-0.5) Neut % (Auto) 83.0 H % 66.5 % (45.5-73.1) (45.5-73.1) Lymph % (Auto) 7.4 L % 18.4 % (18.3-44.2) (18.3-44.2) [place] % (Auto) 8.6 H % 13.1 H % (2.6-8.5) (2.6-8.5) Eos % (Auto) 0.1 % 1.3 % (0-4.4) (0-4.4) Baso % (Auto) 0.2 % 0.1 L % (0.2-1.2) (0.2-1.2) Lymph # (Auto) 1.11 K/mm3 1.96 K/mm3 (0.9-3.2) (0.9-3.2) [place] # (Auto) 1.3 H K/mm3 1.4 H K/mm3 (0.1-0.6) (0.1-0.6) Eos # (Auto) 0.0 K/mm3 0.1 K/mm3 (0-0.3) (0-0.3) Baso # (Auto) 0.0 K/mm3 0.0 K/mm3 (0.0-0.1) (0.0-0.1) Abs Immat Gran (auto) 0.10 H K/mm3 0.06 H K/mm3 (0.00-0.031) (0.00-0.031) Absolute Neuts (auto) 12.4 H K/mm3 7.1 H K/mm3 (1.3-6.7) (1.3-6.7) Absolute Nucleated RBC 0.000 K/mm3 0.000 K/mm3 (0.0-0.012) (0.0-0.012) Nucleated RBC % 0.0 % 0.0 % (0.0-0.2) (0.0-0.2) Sodium 138 mmol/L 135 L mmol/L (137-145) (137-145) Potassium 3.8 mmol/L 3.6 mmol/L (3.4-5.0) (3.4-5.0) Chloride 108 H mmol/L 106 mmol/L (98-107) (98-107) Carbon Dioxide 23 mmol/L 26 mmol/L (22-30) (22-30) Anion Gap 7 mmol/L 3 L mmol/L (4-12) (4-12) BUN 13 mg/dL 11 mg/dL (9-20) (9-20) Creatinine 1.00 mg/dL 1.00 mg/dL (0.7-1.3) (0.7-1.3) Estim Creat Clear Calc 88 ml/min 88 ml/min Estimated GFR > 60 > 60 (59 - ) (59 - ) Glucose 110 mg/dL 102 mg/dL (65-110) (65-110) Calcium 8.7 mg/dL 8.3 L mg/dL (8.4-10.2) (8.4-10.2) Total Bilirubin 0.9 mg/dL 0.8 mg/dL (0.2-1.3) (0.2-1.3) AST 33 U/L 18 U/L (17-59) (17-59) ALT 21 U/L 17 U/L (6-50) (6-50) Alkaline Phosphatase 66 U/L 56 U/L (38-126) (38-126) Total Protein 6.0 L g/dL 6.0 L g/dL (6.3-8.2) (6.3-8.2) Albumin 3.9 g/dL 3.4 L g/dL (3.5-5.1) (3.5-5.1) Urine Color Yellow (Yellow) Urine Appearance Clear (Clear) Urine pH 5.5 (5.0-9.0) Ur Specific [place] 1.005 (1.001-1.035) Urine Protein Negative mg/dL (Negative) Urine Glucose (UA) Negative mg/dL (Negative) Urine Ketones Negative mg/dL (Negative) Ur Blood (Man) 2+ H
[2023-10-24] MEDS: fentaNYL CITRATE INJ (*CRX) 100 MCG/2 ML VIAL 50 MCG IV PUSH (14:13)
[2023-10-24] MEDS: ceFAZolin 2 GM/D5W 50 ML 2 GM/50 ML BAG IVPB (15:00)
[2023-10-24] MEDS: LIDOCAINE HCL 2% GEL UROJET 10 ML PKG MUCOUS MEM (15:11)
--- NOTE | 2023-10-24 15:11 | P.OP_ITS ---
Procedure Note - Detailed Date of Procedure 10/24/23 Pre-op Diagnosis Left ureteral stone Post-op Diagnosis Same Procedure Performed Cystoscopy, left retrograde pyelography, left ESWL, left ureteral stent placement Surgeon Moy Chavira MD Anesthesia General Description of Procedure patient is brought to the operative suite was prepped draped in routine sterile fashion while in supine position. Cystoscopy was undertaken with a 16 F flexible cystoscope. He has no urethral stricture with minimal prostatic hyperplasia. There was no intravesical foreign body or neoplasm. A 0.035 in glidewire was advanced into his left ureter and a retrograde pyelogram was obtained with a [place] catheter. His 8 x 12 mm proximal ureteral stone is easily identified as a large filling defect in the proximal ureter. A total of 3000 shocks were delivered at a power setting up to 4. The termination of the procedure I placed a 4.8 F variable length stent with the proximal coil in the renal pelvis distal coil in the bladder. Scopes/wires were removed and was taken recovery room good condition. Drains No Packing No Pathology None sent Complications No immediate complications
[2023-10-24] MEDS: PANTOPRAZOLE 40 MG TABLET PO (17:42)
[2023-10-24] MEDS: HYDROcodone/acetaminophen (*CRX) 5-325 MG TABLET 1 TAB PO (17:42)
[2023-10-24] MEDS: HYOSCYAMINE SULFATE 0.125 MG TABLET SUBLINGUAL (18:32)
--- NOTE | 2023-10-28 09:22 | PM.DS ---
DS: Admitting Diagnosis Discharge Date 10/24/23 Admitting Diagnosis flank pain DS: Discharge Diagnosis Discharge Diagnosis (1) Left ureteral stone: Code(s): N20.1 - Calculus of ureter Status: Acute Assessment and Plan: - CT abd/pelvis (10/21): 1.2 x 0.8 cm stone at the very proximal left ureter with mild left hydronephrosis. - UA: 2+ blood, 1+ leuks, no epithelial cells, no bacteria - given up trending leukocytosis will obtain UC, hold on abx - previous micro reviewed: none - urology consulted, Alirio LIZAMA. provided the following recs: Admission for pain control Proceed with cystoscopy and left retrograde pyelogram, left ESWL and left ureteral stent placement on 10/23 around 3 pm Stone is not visible on KUB, will need definitive stone treatment at a later date - NPO at midnight 10/23 - trend labs - pain control - IV fluids: LR at 75 mL/hr x 1L - continue Flomax Plan Patient here with left flank pain, found to have a 1.2 x 0.8 cm stone of the proximal left ureter on CT yesterday, 10/21. Plan for cystoscopy tomorrow with Urology. UA does not appear infected, however has up trending leukocytosis, urine culture ordered. Continue pain control. Diet: NPO at midnight () GI Prophylaxis: Continue home omeprazole DVT Prophylaxis: SCDs Lines: Peripheral Code Status: full code DS: Summary Hospital Course Hospital Course: admited fro flank piN, HAD CYSTOSCOPY. F/U WITH UROLOGY UPON discharge Status at Discharge Functional status at discharge: independent ambulation Overall status at discharge: patient is back to baseline Time Spent with Patient Time attestation: Total time spent providing and/or coordinating discharge services: Time spent: Less than 30 minutes Specific discharge activities: discharged per urology Exam Narrative: mild left flank tenderness. bs fine. abdomen rounded, slightly tight but soft, and no tenderness. Const: General: comfortable and no acute distress Other: , male, nontoxic appearance HENMT: Face/Nose/Sinus: Normal nares present Mouth: Yes moist mucous membranes Eyes: General: appearance normal, both eyes and all related structures Sclera: sclerae normal Pupils: Equal, round and reactive pupils present EOM: EOMs intact bilaterally Resp: Effort & Inspection: normal respiratory effort Auscultation: clear to auscultation bilaterally Cardio: Rate: regular rate Rhythm: regular rhythm Other: S1-S2 present without murmur, rub, ectopy GI: Other: abdomen rounded, slightly tight but soft, and no tenderness. Normoactive bowel sounds in all quadrants. : Other: +CVA tenderness on left Skin: General skin exam: normal color and no rashes or lesions noted Wounds: no wounds Neuro: Cranial nerves: Yes Equal, round and reactive pupils present Speech: normal speech and No Abnormal speech present Motor exam (neuro): 5/5 motor strength present throughout Sensory Exam: normal sensation Other: A&O x4 Psych: Mental Status: mental status grossly normal Affect: normal affect Other: Good insight judgment, pleasant DS: Data Data Completed and Pending Completed studies during hospitalization: cystoscopy Pending studies at discharge: none Discharge Plan Discharge Attending physician on discharge: Asif Carroll Consulting providers: Chalino Murray; Moy Chavira; Milagros Amezquita; Gail Dorman; Iman Camp; Thor Tavarez; Conrado Arthur V. Discharging Clinician: Moy Chavira Patient Disposition: Home, Self-Care Activity: other - see discharge instructions Diet: other - see discharge instructions Discharge Instructions: 1) Activity: no driving or important decisions x24 hours. 2) Diet: resume your normal, pre-admission diet. 3) Follow-up: 7-14 days for stent removal / call for appointment ([phone]). Patient Instructions: Antibiotic Form Stand Alone Forms: General
== END 2023-10-24 18:47 | disposition home or self-care (01) ==
LOC: ANHED 16:57 → ANH3MEDSUR 18:27
PROVIDERS: Student in an Organized Health Care Education/Training Program; Urology; Admitting Provider Hospitalist; Emergency Provider Nurse Practitioner Family; PCP Internal Medicine; Visit Provider Hospitalist
PROC: (CPT 50590; principal; 2023-10-24 16:30)
DX: N13.2 Hydronephrosis with renal and ureteral calculous obstruction (principal); K21.9 Gastro-esophageal reflux disease without esophagitis; M10.9 Gout, unspecified; Z86.718 Personal history of other venous thrombosis and embolism; Z87.891 Personal history of nicotine dependence
CPT/HCPCS: 50590; 52332; 36415; 74018; 80053; 81001; 85025; 87086; 96361; 96374; 96375; 96376; 99285; A9270; C1758; C1769; C2617; G0378; J0690; J1100; J1170; J1596; J2250; J2371; J2405; J2704; J3010; J7030; J7120; Q9966

== ENCOUNTER 2023-10-31 13:58 | Outpatient (CLI) | payer BC, SELFPAY ==
--- NOTE | ~2023-10-31 | CT_ITS ---
EXAMINATION: CT abdomen wo con DATE: 10/31/2023 14:32 INDICATION: Left kidney stone. TECHNIQUE: Computed tomography (CT) of the abdomen was performed without intravenous contrast. Automa flavia exposure control and iterative reconstruction technique were employed. The dose-length product wa s 259.41 mGy-cm. COMPARISON: CT abdomen and pelvis 10/22/2023 FINDINGS: The visualized portions of the lung bases are clear without pneumonia or pleural effusion. The heart size is normal. No pericardial effusion. There is a small sliding hiatal hernia. The liver, gallbladder, spleen, pancreas, adrenal glands, and right kidney are normal. There is a 1 mm stone in left kidney. There is a left internal ureteral stent in expected position. There is a 2 mm stone in proximal left ureter. There is a 3 mm stone in distal left ureter. The prostate is mildly enlarged. T here are bilateral inguinal hernias containing fat. There are no dilated loops of bowel. The appendix is normal. There are no pathologically enlarged lymph nodes. There is no free intraperitoneal fluid. There is severe lower lumbar spondylosis. IMPRESSION: 1. 1 mm nonobstructing left kidney stone. 2. 2 mm and 3 mm stones in left ureter with left internal ureteral stent in expected position. Reviewed, dictated and finalized at location E. IMPRESSION: 1. 1 mm nonobstructing left kidney stone. 2. 2 mm and 3 mm stones in left ureter with left internal ureteral stent in exp ected position.
== END 2023-10-31 13:59 | disposition home or self-care (01) ==
LOC: ANHIMG 14:02
PROVIDERS: PCP Internal Medicine; Visit Provider Urology
DX: N20.0 Calculus of kidney (principal); N20.1 Calculus of ureter
CPT/HCPCS: 74150

== ENCOUNTER 2023-12-27 01:29 | Day surgery (SDC) | payer BC, SELFPAY ==
[2023-12-23 14:52] VITALS: BMI 28.3
[2023-12-27 07:11] VITALS: BP 115/85; PULSE 62; RESP 16; TEMP 36.3; O2SAT 99
[2023-12-27] MEDS: LACTATED RINGERS 1,000 ML 150 ML IV CONT (07:21)
--- NOTE | 2023-12-27 07:44 | P.PNAN_ITS ---
Anes - Initial Pre Proc Eval Procedure: Operation Date: 12/27/23 08:30 Proposed Procedures p Colonoscopy - Jordi Beasley MD Date/Time: 12/27/23 07:44 Surgeon: Jordi Beasley MD Pre Op Diagnosis: Positive cologuard Patient Data Age: 53 Gender: M Height: 1.75 m Weight: 85.7 kg Last Vital Signs Temp 97.4 F L 12/27/23 07:11 Pulse 62 12/27/23 07:11 Resp 16 12/27/23 07:11 BP 115/85 12/27/23 07:11 Pulse Ox 99 12/27/23 07:11 O2 Del Method Room Air 12/27/23 07:11 Allergies Allergy/AdvReac Type Severity Reaction Status Date / Time No Known Allergies Allergy Verified 12/27/23 07:09 Home Medications Medication Instructions Recorded Confirmed Type omeprazole 40 mg capsule,delayed 40 mg PO DAILY 10/22/23 12/27/23 History release allopurinol 100 mg tablet 100 mg PO DAILY 12/23/23 12/27/23 History Patient hx anesthesia problems: none Family hx anesthesia problems: none Results Review: All pre-operative results and documents have been reviewed as part of the pre- operative evaluation. [facility] Past Medical History Medical History DVT (deep venous thrombosis) (2019) Esophageal stricture GERD (gastroesophageal reflux disease) Gout History of esophageal dilatation Surgical History Surgical History History of foot surgery Fracture, 2019 Social History Social History Smoking packs per day: 0.25 Smoking cigarettes per day: 5.0 Years smoked: 4 Smoking pack-years: 1.00 Smoking status: Current every day smoker Smokeless tobacco user: chewing tobacco Alcohol intake: current Drinks per week: 12 Alcohol use details: BEER Substance use: never Substance use type: does not use Do You Feel Safe in your Home?: Yes Lack of Transportation: No Lack of Food: Never True Current Housing: I Have Housing Concerned About Future Housing: No Difficulty Paying Gas/Electric Bills: No Difficulty Paying for Meds: No Currently Unemployed: No Education: High School Diploma/GED Difficulty w/ Childcare or Family Care: No Living arrangements: with family Spiritual care concerns: No Anes - Eval Final PreProcedure Day of Procedure 12/27/23 07:44 Patient weight: normal Heart: regular rate and rhythm Lungs: clear to auscultation Airway: Mallampati scale class II Neurological: alert and oriented Last oral intake: >/= 8 hours ASA classification: II Emergent: no Anesthetic plan: proceed Anesthesia type and monitoring: general GIVS and standard monitoring Results Review: All pre-operative results and documents have been reviewed as part of the pre- operative evaluation. Informed Consent: The patient's anesthetic plan and its attendant risks and benefits were discussed with the patient/family/POA. Questions were solicited and answers provided to the satisfaction of the patient/family/POA.
--- NOTE | 2023-12-27 07:56 | PM.HPGS ---
History of Present Illness History of Present Illness Consent: Risks, benefits, and alternatives have been discussed and questions answered. Patient agrees to proceed with procedure. Chief complaint: Positive cologuard Narrative: Shi Grajeda is a 53 year old male here for first colonoscopy, had + cologuard Review of Systems Review of Systems: All systems reviewed & are unremarkable except as noted in HPI and below PMFSH Past Medical History Medical History (Updated 12/27/23 @ 07:59 by Jordi Beasley MD) DVT (deep venous thrombosis) (2019) Esophageal stricture GERD (gastroesophageal reflux disease) Gout History of esophageal dilatation Positive colorectal cancer screening using Cologuard test Surgical History Surgical History History of foot surgery Fracture, 2019 Social History Social History Smoking packs per day: 0.25 Smoking cigarettes per day: 5.0 Years smoked: 4 Smoking pack-years: 1.00 Smoking status: Current every day smoker Smokeless tobacco user: chewing tobacco Alcohol intake: current Drinks per week: 12 Alcohol use details: BEER Substance use: never Substance use type: does not use Do You Feel Safe in your Home?: Yes Lack of Transportation: No Lack of Food: Never True Current Housing: I Have Housing Concerned About Future Housing: No Difficulty Paying Gas/Electric Bills: No Difficulty Paying for Meds: No Currently Unemployed: No Education: High School Diploma/GED Difficulty w/ Childcare or Family Care: No Living arrangements: with family Spiritual care concerns: No Meds Home Medications and Allergies Home Medications Medication Instructions Recorded Confirmed Type omeprazole 40 mg capsule,delayed 40 mg PO DAILY 10/22/23 12/27/23 History release allopurinol 100 mg tablet 100 mg PO DAILY 12/23/23 12/27/23 History Allergies Allergy/AdvReac Type Severity Reaction Status Date / Time No Known Allergies Allergy Verified 12/27/23 07:09 Vital Signs Vital Signs - 24 hr 12/27/23 07:11 Temperature 97.4 F L Pulse Rate 62 Respiratory Rate 16 Blood Pressure 115/85 Pulse Oximetry 99 Oxygen Delivery Room Air Exam Const: General: comfortable and no acute distress HENMT: Face/Nose/Sinus: Normal nares present Eyes: General: appearance normal, both eyes and all related structures Neck: Neck: no JVD Resp: Auscultation: clear to auscultation bilaterally Cardio: Rate: regular rate Rhythm: regular rhythm GI: Inspection: non-distended GI Palp: Yes Soft to palpation Skin: General skin exam: normal color Neuro: General: gait normal Speech: normal speech Extrem: General: normal to inspection Psych: Mental Status: mental status grossly normal Assessment and Plan Assessment and plan (1) Positive colorectal cancer screening using Cologuard test: Code(s): R19.5 - Other fecal abnormalities Status: Acute Assessment and Plan: colonoscopy
[2023-12-27 08:11] VITALS: BP 116/78; PULSE 67; RESP 18; O2SAT 98
[2023-12-27 08:21] VITALS: BP 115/68; PULSE 58; RESP 20; O2SAT 99
[2023-12-27 08:31] VITALS: BP 120/83; PULSE 57; RESP 20; O2SAT 99
== END 2023-12-27 08:33 | disposition home or self-care (01) ==
PROVIDERS: PCP Internal Medicine; Visit Provider Internal Medicine Gastroenterology
PROC: 0DJD8ZZ Inspection of Lower Intestinal Tract, Via Natural or Artificial Opening Endoscopic (ICD-10-PCS; CPT 45378; principal; 2023-12-27 08:30)
DX: K63.5 Polyp of colon (principal); K64.8 Other hemorrhoids; K57.30 Diverticulosis of large intestine without perforation or abscess without bleeding; K21.9 Gastro-esophageal reflux disease without esophagitis; F17.220 Nicotine dependence, chewing tobacco, uncomplicated; Z98.890 Other specified postprocedural states; Z86.718 Personal history of other venous thrombosis and embolism
CPT/HCPCS: 45385; 88305; J2704; J7120

== ENCOUNTER 2024-05-02 07:03 | Outpatient (CLI) | payer BC, SELFPAY ==
[2024-05-02 07:57] LABS: Alanine Aminotransferase 26 U/L (16-63); Albumin Level 3.7 g/dL (3.4-5.0); Alkaline Phosphatase 77 U/L (46-116); Anion Gap 6 mmol/L (4-12); Aspartate Amino Transferase 15 U/L (15-37); Bilirubin,Total 0.5 mg/dL (0.00-1.00); Blood Urea Nitrogen 22 mg/dL (7-18); Calcium 9.2 mg/dL (8.5-10.1); Carbon Dioxide 31 mmol/L (21-32); Chloride 106 mmol/L (98-108); Cholesterol 248 mg/dL (0-200); Estimated Glomerular Filt Rate > 60; Ferritin 531 ng/mL (26-388); Glucose 103 mg/dL (70-99); HDL Direct 48 mg/dL (40-60); LDL Cholesterol Calculated 175 mg/dL (<130); Osmolality Calculated 299 mOsm/kg (285-295); Potassium 3.9 mmol/L (3.5-5.1); Sodium 143 mmol/L (136-145); Total Protein 6.6 g/dL (6.4-8.2); Triglycerides 127 mg/dL (0-150); Uric Acid 4.8 mg/dL (3.5-7.2)
== END 2024-05-02 07:04 | disposition home or self-care (01) ==
PROVIDERS: PCP Internal Medicine; Visit Provider Internal Medicine
DX: E78.5 Hyperlipidemia, unspecified (principal); M10.9 Gout, unspecified; R79.89 Other specified abnormal findings of blood chemistry
CPT/HCPCS: 36415; 80053; 80061; 82728; 84550

== ENCOUNTER 2024-11-19 07:13 | Outpatient (CLI) | payer BC, SELFPAY ==
[2024-11-19 07:31] LABS: Basophils Absolute Auto 0.03 K/mm3 (0.00-0.10); Basophils Percent Auto 0.4 % (0.0-1.0); Eosinophils Absolute Auto 0.23 K/mm3 (0.02-0.50); Eosinophils Percent Auto 2.8 % (1.0-6.0); Hematocrit 44.8 % (40.0-54.0); Hemoglobin 14.9 g/dL (14.0-18.0); Immature Granulocyte Absolute 0.02 K/mm3 (0.00-0.00); Immature Granulocyte Percent A 0.2 % (0.0-0.0); Lymphocytes Absolute Auto 2.23 K/mm3 (1.10-4.50); Lymphocytes Percent Auto 26.9 % (18.0-42.0); Mean Corpuscular HGB Conc 33.3 g/dL (32-36); Mean Corpuscular Hemoglobin 31.2 pg (27.0-31.0); Mean Corpuscular Volume 93.7 fL (78.0-102.0); Mean Platelet Volume 9.1 fl (8.7-11.0); Monocytes Absolute Auto 0.71 K/mm3 (0.10-0.90); Monocytes Percent Auto 8.6 % (2.0-11.0); Neutrophils Absolute Auto 5.06 K/mm3 (1.70-7.20); Neutrophils Percent Auto 61.1 % (50.0-70.0); Platelet Count Result 282 K/mm3 (150-420); Red Blood Count 4.78 M/mm3 (4.70-6.10); Red Cell Distribution Width 12.5 % (11.6-14.4); White Blood Count 8.3 K/mm3 (4.8-10.8)
[2024-11-19 07:59] LABS: Add Urine Microscopic? NO; Appearance Urine Clear (Clear); Bilirubin Urine Negative (Negative); Blood Urine Negative (Negative); Color Urine Yellow (Yellow); Glucose Urine UA Negative (Negative); Ketones Urine Negative (Negative); Leukocyte Esterase Ur Negative (Negative); Nitrate Urine Negative (Negative); Protein Urine Negative (Negative); Specific Grav Ur >= 1.030 (1.010-1.020); Urobilinogen Urine 0.2 mg/dL (0.2-1.0); pH Urine 5.5 (5.0-8.0)
[2024-11-19 08:43] LABS: Alanine Aminotransferase 30 U/L (6-50); Albumin Level 4.5 g/dL (3.5-5.1); Alkaline Phosphatase 67 U/L (38-126); Anion Gap 6 mmol/L (4-12); Aspartate Amino Transferase 32 U/L (17-59); Bilirubin,Total 0.8 mg/dL (0.2-1.3); Blood Urea Nitrogen 20 mg/dL (9-20); Calcium 9.3 mg/dL (8.4-10.2); Carbon Dioxide 27 mmol/L (22-30); Chloride 106 mmol/L (98-107); Cholesterol 185 mg/dL (0-200); Estimated Glomerular Filt Rate > 60; Glucose 99 mg/dL (65-110); HDL Direct 54 mg/dL; LDL Cholesterol Calculated 86 mg/dL (<130); Osmolality Calculated 290 mOsm/kg (285-295); Potassium 4.1 mmol/L (3.4-5.0); Sodium 139 mmol/L (137-145); Total Protein 6.9 g/dL (6.3-8.2); Triglycerides 226 mg/dL (<150); Uric Acid 4.7 mg/dL (3.5-8.5)
[2024-11-19 09:15] LABS: Prostate Specific Antigen 1.4 ng/mL (< OR = 4.0)
== END 2024-11-19 07:14 | disposition home or self-care (01) ==
LOC: CHSLAB 07:15
PROVIDERS: PCP Internal Medicine; Visit Provider Internal Medicine
DX: Z00.00 Encounter for general adult medical examination without abnormal findings (principal); M10.9 Gout, unspecified; E83.119 Hemochromatosis, unspecified
CPT/HCPCS: 36415; 80053; 80061; 81003; 82728; 84153; 84443; 84550; 85025; G0103

== ENCOUNTER 2025-05-21 07:14 | Outpatient (CLI) | payer BC, SELFPAY ==
[2025-05-21 08:11] LABS: Alanine Aminotransferase 26 U/L (6-50); Albumin Level 4.6 g/dL (3.5-5.1); Alkaline Phosphatase 58 U/L (38-126); Anion Gap 7 mmol/L (4-12); Aspartate Amino Transferase 29 U/L (17-59); Bilirubin,Total 0.3 mg/dL (0.2-1.3); Blood Urea Nitrogen 20 mg/dL (9-20); Calcium 9.7 mg/dL (8.4-10.2); Carbon Dioxide 28 mmol/L (22-30); Chloride 109 mmol/L (98-107); Cholesterol 181 mg/dL (0-200); Estimated Glomerular Filt Rate > 60; Glucose 101 mg/dL (65-110); HDL Direct 57 mg/dL; Osmolality Calculated 300 mOsm/kg (285-295); Potassium 4.8 mmol/L (3.4-5.0); Sodium 144 mmol/L (137-145); Total Protein 6.8 g/dL (6.3-8.2); Triglycerides 141 mg/dL (<150)
[2025-05-21 08:46] LABS: Ferritin 335.00 ng/mL (11.1-264)
== END 2025-05-21 07:15 | disposition home or self-care (01) ==
LOC: CHSLAB 07:20
PROVIDERS: PCP Internal Medicine; Visit Provider Internal Medicine
DX: E78.5 Hyperlipidemia, unspecified (principal); M10.9 Gout, unspecified; E83.119 Hemochromatosis, unspecified
CPT/HCPCS: 36415; 80053; 80061; 82728